=== PATIENT | male | born 1960 | race Caucasian/White ===

== ENCOUNTER 2019-10-23 15:58 | Outpatient (CLI) | payer MEDICARE, SELFPAY ==
--- NOTE | 2019-10-23 | ECG_ITS ---
Measurements Intervals [place] Rate: 72 P: 61 [place]: 190 QRS: 15 QRSD: 78 T: 44 QT: 373 QTc: 411 Interpretive Statements SINUS RHYTHM BASELINE WANDER- V4-V6 NORMAL ECG Electronically Signed On 10-23-2019 16:45:43 FISHING TOOL OPERATOR by Myles Almeida D.O.
[2019-10-23 17:01] LABS: Hematocrit 40.6 % (42.0-52.0); Hemoglobin 13.3 g/dL (14.0-18.0); Mean Corpuscular HGB Conc 32.8 g/dl (32-36); Mean Corpuscular Hemoglobin 30.3 pg (26-34); Mean Corpuscular Volume 92.5 fl (80-100); Mean Platelet Volume 9.7 fl (7.4-10.4); Platelet Count Result 180 k/mm3 (150-375); Red Blood Count 4.39 M/mm3 (4.6-6.20); Red Cell Distribution Width 12.7 % (11.5-14.5); White Blood Count 6.8 K/mm3 (4.5-10.0)
[2019-10-23 17:13] LABS: Alanine Aminotransferase 68 U/L (4-50); Albumin Level 4.7 g/dL (3.5-5.1); Alkaline Phosphatase 54 U/L (38-126); Aspartate Amino Transferase 62 U/L (17-59); Bilirubin,Total 0.4 mg/dL (0.2-1.3); Blood Urea Nitrogen 18 mg/dL (9-20); Calcium 10.4 mg/dL (8.4-10.2); Carbon Dioxide 30 mmol/L (22-30); Chloride 96 mmol/L (98-107); Estimated Glomerular Filt Rate > 60; Glucose 153 mg/dL (75-110); Potassium 4.7 mmol/L (3.4-5.0); Sodium 141 mmol/L (137-145)
== END 2019-10-23 15:59 | disposition home or self-care (01) ==
PROVIDERS: PCP Family Medicine
DX: Z01.818 Encounter for other preprocedural examination (principal); Z01.810 Encounter for preprocedural cardiovascular examination
CPT/HCPCS: 36415; 80053; 85027; 93005

== ENCOUNTER 2019-12-24 14:11 | Outpatient (CLI) | payer MEDICARE, SELFPAY ==
[2019-12-24 15:24] LABS: Prostate Specific Antigen 1.6 ng/mL (< OR = 4.0)
== END 2019-12-24 14:12 | disposition home or self-care (01) ==
LOC: ANHLAB 14:12
PROVIDERS: PCP Family Medicine; Visit Provider Family Medicine
DX: Z12.5 Encounter for screening for malignant neoplasm of prostate (principal)
CPT/HCPCS: 36415; 84153; G0103

== ENCOUNTER 2020-06-23 10:09 | Outpatient (CLI) | payer MEDICARE, SELFPAY ==
[2020-06-23 10:53] LABS: Hematocrit 40.3 % (42.0-52.0); Hemoglobin 13.6 g/dL (14.0-18.0)
[2020-06-23 11:10] LABS: Alanine Aminotransferase 72 U/L (4-50); Albumin Level 4.7 g/dL (3.5-5.1); Alkaline Phosphatase 58 U/L (38-126); Anion Gap 10 mmol/L (8-16); Aspartate Amino Transferase 95 U/L (17-59); Bilirubin,Total 0.5 mg/dL (0.2-1.3); Blood Urea Nitrogen 18 mg/dL (9-20); Calcium 9.5 mg/dL (8.4-10.2); Carbon Dioxide 31 mmol/L (22-30); Chloride 97 mmol/L (98-107); Cholesterol 168 mg/dL (0-200); Estimated Glomerular Filt Rate > 60; Glucose 153 mg/dL (75-110); HDL Direct 27 mg/dL; Potassium 4.4 mmol/L (3.4-5.0); Sodium 138 mmol/L (137-145); Triglycerides 223 mg/dL (<150)
[2020-06-23 11:21] LABS: LDL Cholesterol Direct 110 mg/dL
[2020-06-23 11:25] LABS: Microalbumin Urine Random 28.3 mg/L (0-16.7)
[2020-06-23 11:39] LABS: Prostate Specific Antigen 1.1 ng/mL (< OR = 4.0)
[2020-06-23 11:56] LABS: Creatinine Urine 424.1 mg/dL; MALB Creatinine Ratio 6.7 mg/g (0-30)
[2020-06-28 14:58] LABS: Testosterone Free 43.4 pg/mL (35.0-155.0); Testosterone Total 312 ng/dL (250-1100)
== END 2020-06-23 10:10 | disposition home or self-care (01) ==
PROVIDERS: PCP Family Medicine; Visit Provider Internal Medicine Endocrinology, Diabetes & Metabolism
DX: E11.65 Type 2 diabetes mellitus with hyperglycemia (principal); E23.0 Hypopituitarism; G47.33 Obstructive sleep apnea (adult) (pediatric); E11.9 Type 2 diabetes mellitus without complications; Z12.5 Encounter for screening for malignant neoplasm of prostate
CPT/HCPCS: 36415; 80053; 80061; 82043; 84153; 84402; 84403; 85014; 85018; 87635; C9803; G0103; U0003

== ENCOUNTER 2020-10-21 13:06 | Outpatient (CLI) | payer MEDICARE, SELFPAY ==
[2020-10-21 13:39] LABS: Cholesterol 158 mg/dL (0-200); HDL Direct 36 mg/dL; Triglycerides 319 mg/dL (<150)
[2020-10-21 13:51] LABS: LDL Cholesterol Direct 91 mg/dL
[2020-10-25 14:35] LABS: Testosterone Free 53.9 pg/mL (35.0-155.0); Testosterone Total 333 ng/dL (250-1100)
== END 2020-10-21 13:07 | disposition home or self-care (01) ==
PROVIDERS: PCP Family Medicine; Visit Provider Internal Medicine Endocrinology, Diabetes & Metabolism
DX: E23.0 Hypopituitarism (principal); E11.65 Type 2 diabetes mellitus with hyperglycemia; G47.33 Obstructive sleep apnea (adult) (pediatric); E11.9 Type 2 diabetes mellitus without complications; E78.1 Pure hyperglyceridemia
CPT/HCPCS: 36415; 80061; 82607; 84402; 84403

== ENCOUNTER 2021-05-05 13:54 | Outpatient (CLI) | payer MEDICARE, SELFPAY ==
[2021-05-05 16:16] LABS: Hematocrit 39.2 % (42.0-52.0); Hemoglobin 12.9 g/dL (14.0-18.0)
[2021-05-05 16:24] LABS: Alanine Aminotransferase 81 U/L (4-50); Albumin Level 4.7 g/dL (3.5-5.1); Alkaline Phosphatase 70 U/L (38-126); Anion Gap 14 mmol/L (8-16); Aspartate Amino Transferase 85 U/L (17-59); Bilirubin,Total 0.8 mg/dL (0.2-1.3); Blood Urea Nitrogen 20 mg/dL (9-20); Calcium 10.1 mg/dL (8.4-10.2); Carbon Dioxide 26 mmol/L (22-30); Chloride 99 mmol/L (98-107); Estimated Glomerular Filt Rate > 60; Glucose 258 mg/dL (75-110); HDL Direct 38 mg/dL; Potassium 4.8 mmol/L (3.4-5.0); Sodium 139 mmol/L (137-145)
[2021-05-05 16:34] LABS: LDL Cholesterol Direct 105 mg/dL
[2021-05-05 16:42] LABS: Creatinine Urine 248.4 mg/dL
[2021-05-05 16:45] LABS: MALB Creatinine Ratio 9.1 mg/g (0-30); Microalbumin Urine Random 22.5 mg/L (0-16.7)
[2021-05-05 16:54] LABS: Prostate Specific Antigen 1.4 ng/mL (< OR = 4.0)
[2021-05-09 09:11] LABS: Testosterone Total 288 ng/dL (250-1100)
== END 2021-05-05 13:55 | disposition home or self-care (01) ==
LOC: ANHWCLAB 14:10
PROVIDERS: PCP Family Medicine; Referring Provider Internal Medicine Endocrinology, Diabetes & Metabolism; Visit Provider Internal Medicine Endocrinology, Diabetes & Metabolism
DX: E11.65 Type 2 diabetes mellitus with hyperglycemia (principal); E23.0 Hypopituitarism; Z12.5 Encounter for screening for malignant neoplasm of prostate
CPT/HCPCS: 36415; 80053; 82043; 83718; 83721; 84153; 84402; 84403; 85014; 85018; G0103

== ENCOUNTER 2021-06-09 13:21 | Outpatient (CLI) | payer MEDICARE, SELFPAY ==
--- NOTE | ~2021-06-09 | US_ITS ---
EXAMINATION: US thyroid DATE: 06/09/2021 13:45 INDICATION: Nontoxic goiter. TECHNIQUE: Multiple ultrasound images of the thyroid were obtained. COMPARISON: Ultrasound 04/30/2017 FINDINGS: The right thyroid lobe measures 5.9 x 4.2 x 4.0 cm. The left thyroid lobe measures 4.3 x 1.1 x 1.3 c m. In the right thyroid lobe, there is a 4.9 cm mixed cystic and solid, hypoechoic, kxsnu-bmya-daxl nodule with ill-defined margin without echogenic foci (TI-RADS TR3). In the left thyroid lobe, there is a 4 mm nodule. IMPRESSION: 1. 4.9 cm right thyroid nodule with increase in size from 3.1 cm on 06/06/2017 when biopsy was benign. Repeat ultrasound-guided fine-needle aspiration is recommended. Reviewed, dictated and finalized at location A. IMPRESSION: 1. 4.9 cm right thyroid nodule with increase in size from 3.1 cm on 06/06/2017 wh en biopsy was benign. Repeat ultrasound-guided fine-needle aspiration is recomm ended.
== END 2021-06-09 13:22 | disposition home or self-care (01) ==
LOC: ANHIMG 13:22
PROVIDERS: PCP Family Medicine; Visit Provider Internal Medicine Endocrinology, Diabetes & Metabolism
DX: E04.9 Nontoxic goiter, unspecified (principal)
CPT/HCPCS: 76536

== ENCOUNTER 2021-06-21 13:11 | Outpatient (CLI) | payer MEDICARE, SELFPAY ==
--- NOTE | ~2021-06-21 | US_ITS ---
EXAMINATION: US FNA w image guidance DATE: 06/21/2021 13:56 INDICATION: Enlarging right thyroid nodule TECHNIQUE: A time-out was performed to verify the patient's name, date of , and procedure to be performed . The procedure and its benefits and risks were discussed with the patient. Risks specifically discus sed included bleeding and infection. The patient understood the risks and agreed to proceed. The neck was prepped and draped in the usual sterile manner. 3 mL 1% lidocaine was used for local anesthesia . 6 passes were made with a 25G needle into the lesion. Appropriate needle location was documented with continuous sonographic guidance. The specimens were passed to the medical technologist in the room. A sterile bandage was applied. There were no immediate complications. FINDINGS: Grayscale ultrasound images demonstrate biopsy needles advanced into a 5.0 cm mixed solid and cystic right thyroid nodule. There are echogenic foci within the nodule, many of which on real-time imaging demonstrated prominent posterior comet tail artifact consistent with inspissated colloid. IMPRESSION: 1. Successful ultrasound-guided fine needle aspiration of the enlarging 5.0 cm mixed solid and cysti c right thyroid nodule. Reviewed, dictated and finalized at location A. IMPRESSION: 1. Successful ultrasound-guided fine needle aspiration of the enlarging 5.0 cm mixed solid and cystic right thyroid nodule.
== END 2021-06-21 13:12 | disposition home or self-care (01) ==
LOC: ANHIMG 13:16
PROVIDERS: PCP Family Medicine; Visit Provider Internal Medicine Endocrinology, Diabetes & Metabolism
DX: E04.1 Nontoxic single thyroid nodule (principal)
CPT/HCPCS: 10005; 88173; 88305

== ENCOUNTER 2021-10-13 14:11 | Outpatient (CLI) | payer MEDICARE, SELFPAY ==
[2021-10-13 14:38] LABS: Hematocrit 38.9 % (42.0-52.0); Hemoglobin 13.1 g/dL (14.0-18.0)
[2021-10-17 16:02] LABS: Testosterone Free 84.4 pg/mL (46.0-224.0); Testosterone Total 539 ng/dL (250-1100)
== END 2021-10-13 14:12 | disposition home or self-care (01) ==
PROVIDERS: PCP Family Medicine; Visit Provider Internal Medicine Endocrinology, Diabetes & Metabolism
DX: E34.9 Endocrine disorder, unspecified (principal)
CPT/HCPCS: 36415; 84402; 84403; 85014; 85018

== ENCOUNTER 2021-12-13 14:44 | Outpatient (CLI) | payer MEDICARE, SELFPAY ==
--- NOTE | ~2021-12-13 | MR_ITS ---
EXAMINATION: MR shoulder LT wo con DATE: 12/13/2021 15:50 INDICATION: Left shoulder pain TECHNIQUE: Magnetic resonance imaging (MRI) of the left shoulder was performed without intravenous co ntrast. Sequences included axial PD-weighted FS FSE, coronal oblique PD-weighted FS FSE, coronal obli que T2-weighted FS FSE, sagittal PD-weighted FS FSE, and sagittal T1-weighted SE. COMPARISON: 05/29/2012 FINDINGS: Coracoacromial arch: The acromion undersurface is curved in morphology (type II). Again seen is thickening of the acromial side of the coracoacromial ligament. Chronic widening of the acromioclavicular joint which measures approximately 9 mm in width with small heterotopic ossicle along the dorsal capsule. Small marginal o steophytes. Coracoclavicular ligament remains intact. Rotator cuff: Moderate supraspinatus and infraspinatus tendinopathy. New large full-thickness tear involving the th e majority of the supraspinatus and infraspinatus tendons. A small portion of the bursal side of the anteriormost supraspinatus tendon and of the posterior most infraspinatus tendon remain intact. The s upraspinatus tear margin is retracted approximately 5 cm medially from the footplate lying cephalad t o the rim of the glenoid. Teres minor tendon is normal. Mild subscapularis tendinopathy without discr ete tear. There is moderate atrophy of the supraspinatus muscle belly with concave contour at the sup raspinatus fossa and of the infraspinatus muscle belly where there is more prominent fatty atrophy. Biceps tendon, glenoid labrum and glenohumeral cartilage: Mild tendinopathy of the intra-articular long head biceps tendon without discrete tear. Normal ivy superior sublingual foramen. There is globular thickening and amorphous signal of the anteroinferior glenoid labrum consistent with degenerative tearing decreasing in severity at the inferior glenoid tr ansitioning to a more well-defined linear tear at the base of the posterior inferior posterior glenoi d labrum. There is additional degenerative tearing of the posterior superior labrum. The superior gle noid labrum appears relatively preserved. There is some partial-thickness chondral fissuring at the i nferior glenoid. Partial-thickness cartilage loss with smooth chondral surface along the inferomedial aspect of the humeral head and the cephalad third of the glenoid. Fluid: Small glenohumeral joint effusion extending through the full-thickness rotator cuff tear defect into the subacromial/subdeltoid bursa. Physiologic amount fluid along the long head biceps tendon sheath. No loose osteochondral bodies. Bones: Normal marrow signal with no edema, fracture or pathologic marrow replacing process. IMPRESSION: 1. Large full-thickness tear involving the majority supraspinatus and infraspinatus tendons with mode rate associated muscular atrophy. 2. Mild glenohumeral osteoarthritis with interval progression of now extensive labral tear/degenerati on. 3. Chronic acromioclavicular joint separation with persistent widening of the joint space. 4. Mild tendinopathy without discrete tear of the intra-articular long head biceps tendon. Reviewed, dictated and finalized at location A. RE PHOTOGRAPHER IMPRESSION: 1. Large full-thickness tear involving the majority supraspinatus and infraspin atus tendons with moderate associated muscular atrophy. 2. Mild glenohumeral osteoarthritis with interval progression of now extensive labral tear/degeneration. 3. Chronic acromioclavicular joint separation with persistent widening of the j oint space. 4. Mild tendinopathy without discrete tear of the intra-articular long head bic eps tendon.
== END 2021-12-13 14:45 | disposition home or self-care (01) ==
LOC: ANHIMG 14:50
PROVIDERS: PCP Family Medicine
DX: M19.012 Primary osteoarthritis, left shoulder (principal)
CPT/HCPCS: 73221

== ENCOUNTER 2022-04-05 12:34 | Emergency (ER) | payer MEDICARE, SELFPAY ==
[2022-04-05] VITALS (20 sets, daily range): BP systolic 98–139; BP diastolic 60–93; PULSE 98–99; RESP 16–18; TEMP 36.8; O2SAT 92–100
--- NOTE | ~2022-04-05 | CT_ITS ---
EXAMINATION: CT brain wo con DATE: 04/05/2022 13:26 INDICATION: Altered mental status. Confusion. TECHNIQUE: Computed tomography (CT) of the head was performed without intravenous contrast. The dose- length product was 681.00 mGy-cm. Automated exposure control and iterative reconstruction technique w ere employed. COMPARISON: None FINDINGS: Brain parenchymal volume is normal for age. No acute intracranial hemorrhage, infarction, m ass or mass effect. No ventriculomegaly or midline shift. Basilar cisterns are patent. Midline sagitt al images are unremarkable. Paranasal sinuses and mastoids are pneumatized. There is mucosal thickeni ng of the frontal and ethmoid sinuses. IMPRESSION: 1. No acute intracranial abnormality. 2: Mild sinus disease. Reviewed, dictated and finalized at location A.
[2022-04-05] MEDS: LACTATED RINGERS 1,000 ML 999 ML IV CONT (12:34)
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
[2022-04-05 13:03] LABS: Basophils Absolute Auto 0.05 K/mm3 (0.00-0.10); Basophils Percent Auto 0.7 % (0.0-1.0); Eosinophils Absolute Auto 0.16 K/mm3 (0.02-0.50); Eosinophils Percent Auto 2.4 % (1.0-6.0); Hematocrit 35.2 % (40.0-54.0); Hemoglobin 11.3 g/dL (14.0-18.0); Immature Granulocyte Absolute 0.03 K/mm3 (0.00-0.00); Immature Granulocyte Percent A 0.4 % (0.0-0.0); Lymphocytes Absolute Auto 2.34 K/mm3 (1.10-4.50); Lymphocytes Percent Auto 34.9 % (18.0-42.0); Mean Corpuscular HGB Conc 32.1 g/dL (32.0-36.0); Mean Corpuscular Hemoglobin 28.8 pg (27.0-31.0); Mean Corpuscular Volume 89.6 fL (78.0-102.0); Mean Platelet Volume 8.5 fl (8.7-11.0); Monocytes Absolute Auto 0.47 K/mm3 (0.10-0.90); Neutrophils Absolute Auto 3.7 K/mm3 (1.7-7.2); Neutrophils Percent Auto 54.6 % (50.0-70.0); Platelet Count Result 159 K/mm3 (150-420); Red Blood Count 3.93 M/mm3 (4.70-6.10); White Blood Count 6.7 K/mm3 (4.8-10.8)
[2022-04-05] MEDS: LORazepam INJ (*CRX) 2 MG/ML VIAL IV PUSH (13:05)
[2022-04-05] MEDS: THIAMINE HCL 200 MG/2 ML VIAL 100 MG IV PUSH (13:05)
[2022-04-05 13:13] LABS: Prothrombin Time 10.9 Seconds (9.50-12.10)
--- NOTE | 2022-04-05 13:20 | PC.NURSE ---
PT IS IN CT AT THIS TIME.
[2022-04-05 13:21] LABS: Alanine Aminotransferase 58 U/L (16-63); Albumin Level 3.5 g/dL (3.4-5.0); Alkaline Phosphatase 82 U/L (46-116); Anion Gap 9 mmol/L (8-16); Aspartate Amino Transferase 49 U/L (15-37); Bilirubin,Total 0.2 mg/dL (0.00-1.00); Blood Urea Nitrogen 16 mg/dL (7-18); Calcium 8.9 mg/dL (8.5-10.1); Carbon Dioxide 28 mmol/L (21-32); Chloride 104 mmol/L (98-108); Estimated CRCL calculation 83 ml/min; Estimated Glomerular Filt Rate > 60; Glucose 203 mg/dL (70-99); Lipase 163 U/L (73-393); Magnesium 2.1 mg/dL (1.8-2.4); Osmolality Calculated 299 mOsm/kg (285-295); Phosphorus 3.6 mg/dL (2.6-4.7); Sodium 141 mmol/L (136-145); Total Protein 7.5 g/dL (6.4-8.2); Troponin I 13.1 ng/L (0.00-60.4)
[2022-04-05 13:22] LABS: Acetaminophen < 2 ug/mL (10-30)
[2022-04-05 13:23] LABS: Ethanol 392 mg/dL (0-6)
--- NOTE | 2022-04-05 13:35 | PC.NURSE ---
PT HAS RETURNED FROM CT, PROVIDED URINE SPECIMEN. PT CONTINUES TO YELL IN EXAM ROOM. ETOH OF 392 PER LAB. WILL CONTINUE TO MONITOR.
[2022-04-05 13:46] LABS: Amphetamine Screen Urine Negative (Negative); Barbiturate Screen Urine Negative (Negative); Benzodiazepines Screen Urine Positive (Negative); Cannabinoid Screen Urine Positive (Negative); Cocaine Screen Urine Negative (Negative); Methadone Screen Urine Negative (Negative); Opiate Screen Urine Positive (Negative); Phencyclidine Screen Urine Negative (Negative)
--- NOTE | 2022-04-05 14:01 | PC.NURSE ---
DAUGHTER JACKIE ARRIVED, REPORTED SHE IS WILLING TO TRANSPORT PT HOME WHEN HE IS READY. PROVIDED # [phone]. PT IS CURRENTLY RESTING ON STRETCHER IN EXAM ROOM WITHOUT DISTRESS. WILL CONTINUE TO MONITOR.
--- NOTE | 2022-04-05 14:46 | PC.NURSE ---
PT IS RESTING ON STRETCHER IN EXAM ROOM AT THIS TIME. NAD NOTED. VSS PER MONITOR. WILL CONTINUE TO MONITOR.
--- NOTE | 2022-04-05 15:30 | PC.NURSE ---
1000ML URINE OUTPUT AT THIS TIME.PT CONTINUES TO HAVE GARBLED SPEECH, ASKING THIS RN IF SHE WOULD LIKE TO HAVE SEX. PT RETURNS TO LYING ON STRETCHER AT THIS TIME. WILL CONTINUE TO MONITOR.
--- NOTE | 2022-04-05 16:00 | PC.NURSE ---
PT IS EATING SANDWICH AT THIS TIME, REPORTS HE WANTS TO LEAVE. PT HAS BEEN REDIRECTED MULTIPLE TIMES AND REPOSITIONED, RETURNED TO [facility] PT IS MORE COHERENT, REPORTS HE LIVES IN [place], HOWEVER DOES NOT KNOW HOW HE GOT HERE. PT IS ABLE TO PROVIDE NUMBERS FOR DAUGHTER AT THIS TIME. PT IS UNSTEADY ON HIS FEET. WILL CONTINUE TO MONITOR.
[2022-04-05] MEDS: diazePAM (*CRX) 5 MG TABLET PO (16:11)
--- NOTE | 2022-04-05 16:15 | PC.NURSE ---
PT HAS EATEN SANDWICH, LYING ON STRETCHER AT THIS TIME, YELLING ABOUT HIS FAMILY. WILL CONTINUE TO MONITOR.
--- NOTE | 2022-04-05 17:05 | PC.NURSE ---
SPOKE WITH DAUGHTER WHO IS COMING TO TRANSPORT PT. PT DEMANDING TO LEAVE OR STATES HE IS WALKING OUT. PT IS ABLE TO AMBULATE, DRESS SELF. PT IS A & O X4.
--- NOTE | 2022-04-05 17:17 | PC.NURSE ---
PT IS ABLE TO USE URINAL TO VOID WITHOUT DISTRESS. 600ML OUTPUT. PT HAS SLIPPER SOCK ON. PT IS AWAITING ARRIVAL OF DAUGHTER
== END 2022-04-05 17:40 | disposition home or self-care (01) ==
PROVIDERS: Emergency Provider Internal Medicine Critical Care Medicine
DX: F10.129 Alcohol abuse with intoxication, unspecified (principal); E11.65 Type 2 diabetes mellitus with hyperglycemia; F19.10 Other psychoactive substance abuse, uncomplicated; D64.9 Anemia, unspecified; I10 Essential (primary) hypertension; K21.9 Gastro-esophageal reflux disease without esophagitis; F41.9 Anxiety disorder, unspecified; M79.671 Pain in right foot; K70.10 Alcoholic hepatitis without ascites; G47.00 Insomnia, unspecified
CPT/HCPCS: 36415; 70450; 80053; 80307; 83690; 83735; 84100; 84484; 85025; 85610; 96361; 96374; 96375; 99284; A9270; J2060; J3411; J7120

== ENCOUNTER 2022-07-15 09:11 | Outpatient (CLI) | payer MEDICARE, SELFPAY ==
[2022-07-15 10:08] LABS: Cholesterol 118 mg/dL (0-200); HDL Direct 30 mg/dL; Triglycerides 234 mg/dL (<150)
[2022-07-15 10:10] LABS: Creatinine Urine 100.8 mg/dL
[2022-07-15 10:15] LABS: MALB Creatinine Ratio < 6.0 mg/g (0-30); Microalbumin Urine Random < 6.0 mg/L (0-16.7)
[2022-07-15 10:19] LABS: LDL Cholesterol Direct 47 mg/dL
[2022-07-15 23:23] LABS: Prostate Specific Antigen 1.5 ng/mL (< OR = 4.0)
[2022-07-21 08:24] LABS: Testosterone Free 64.3 pg/mL (46.0-224.0); Testosterone Total 337 ng/dL (250-1100)
== END 2022-07-15 09:12 | disposition home or self-care (01) ==
LOC: ANHLAB 09:12
PROVIDERS: PCP Family Medicine; Visit Provider Internal Medicine Endocrinology, Diabetes & Metabolism
DX: E11.9 Type 2 diabetes mellitus without complications (principal); E23.0 Hypopituitarism; G47.33 Obstructive sleep apnea (adult) (pediatric); Z68.29 Body mass index [BMI] 29.0-29.9, adult; Z12.5 Encounter for screening for malignant neoplasm of prostate
CPT/HCPCS: 36415; 80061; 82043; 84153; 84402; 84403; G0103

== ENCOUNTER 2022-09-20 15:28 | Outpatient (CLI) | payer MEDICARE, SELFPAY ==
[2022-09-20 15:44] LABS: Hematocrit 37.5 % (42.0-52.0); Hemoglobin 11.9 g/dL (14.0-18.0); Mean Corpuscular HGB Conc 31.7 g/dl (32-36); Mean Corpuscular Hemoglobin 27.4 pg (26-34); Mean Corpuscular Volume 86.4 fl (80-100); Mean Platelet Volume 8.9 fl (7.4-10.4); Platelet Count Result 156 k/mm3 (150-375); Red Blood Count 4.34 M/mm3 (4.6-6.20); Red Cell Distribution Width 14.2 % (11.5-14.5); White Blood Count 6.1 K/mm3 (4.5-10.0)
[2022-09-20 15:58] LABS: Alanine Aminotransferase 52 U/L (6-50); Albumin Level 4.9 g/dL (3.5-5.1); Alkaline Phosphatase 71 U/L (38-126); Anion Gap 14 mmol/L (8-16); Aspartate Amino Transferase 49 U/L (17-59); Bilirubin,Total 0.5 mg/dL (0.2-1.3); Blood Urea Nitrogen 22 mg/dL (9-20); Calcium 9.5 mg/dL (8.4-10.2); Carbon Dioxide 27 mmol/L (22-30); Chloride 97 mmol/L (98-107); Estimated Glomerular Filt Rate > 60; Glucose 163 mg/dL (65-110); Potassium 4.4 mmol/L (3.4-5.0); Sodium 138 mmol/L (137-145)
[2022-09-20 16:00] LABS: Hemoglobin A1C 6.6 % (<5.7)
--- NOTE | 2022-09-20 16:27 | ECG_ITS ---
Measurements Intervals [place] Rate: 76 P: 57 [place]: 203 QRS: 6 QRSD: 79 T: 30 QT: 363 QTc: 409 Interpretive Statements SINUS RHYTHM BORDERLINE AV CONDUCTION DELAY BORDERLINE ECG COMPARED TO ECG 10/23/2019 16:23:03 NO SIGNIFICANT CHANGES Electronically Signed On 09-20-2022 16:57:49 VP ANALYSIS by Myles Almeida D.O.
== END 2022-09-20 15:29 | disposition home or self-care (01) ==
PROVIDERS: PCP Family Medicine; Visit Provider Family Medicine
DX: R74.01 Elevation of levels of liver transaminase levels (principal); I10 Essential (primary) hypertension; E11.9 Type 2 diabetes mellitus without complications; I45.9 Conduction disorder, unspecified
CPT/HCPCS: 36415; 80048; 80076; 83036; 85027; 93005

== ENCOUNTER 2022-11-29 13:35 | Outpatient (RCR) | payer MEDICARE, SELFPAY ==
--- NOTE | 2022-11-29 15:33 | PTOPEVAL1 ---
Assessment and note entered by Klever Tee Evaluation Information Assessment Status Evaluation Diagnosis left reverse shoulder replacement Onset 09/26/22 Subjective Information Pt. reports he underwent surgery on 09/26/22. He reports that he was in a sling for about 6 weeks after surgery. He states that he has been doing wrist and elbow movements at home, but no specific shoulder exercise. He states that he did have the biceps repaired but appeared to have had the biceps detach in the recent days. He reports that he does have pain with moving the left arm. He is right hand dominant. He reports that he is disabled. He reports that he was able to do all IADL's wtihout complication prior to surgery. He reports that his goal is normal left arm use. Reported Pain Level Pain Score 4: Self Report Assessment PT Clinical Summary Pt. is a 62 year old male who enters the clinic 9 weeks post left reverse TSA. He presents with decreased strength, decreased ROM, and pain at the left shoulder on this date. Continued treatment is indicated in order to improve these areas to allow for improved ability to complete all IADL's. Plan of Care PT Services Indicated Yes Treatment Frequency and 3x/week x 12 visits Duration These treatments will address the objective and functional deficits as defined above. The patient will be advanced safely and appropriately in order for the patient to progress towards his/her prior level of function. Additional exercises will be introduced and as well as a comprehensive home exercise program upon discharge, if needed, ?to ensure carryover of functional gains achieved in the clinic. This treatment plan has been reviewed and agreement upon by the patient.
--- NOTE | 2022-12-21 14:53 | PTOPEVAL1 ---
Assessment and note entered by Klever Tee Evaluation Information Assessment Status Progress Diagnosis left reverse shoulder replacement Onset 09/26/22 Subjective Information Pt. reports that the left arm is moving much better. He notices he can now reach overhead with the left arm. He has noticed that he can reach objects in the lower part of his cabinets at home. He still has trouble with reaching behind his back or with reaching much higher than described head height. Reported Pain Level Pain Score 4: Self Report Assessment PT Clinical Summary Pt. has attended a total of 10 treatment sessions from 11/29/22 to 12/21/22. He has demonstrated excellent progress in regards to strength and mobility voodoo. He continues to progress towards goals related to functional overhead mobility. He continues to present with faulty scapulothoracic mechanics indicating remaining weakness that can limited functional reaching. Recommend continued skilled PT continuing to progress strengthening activities. Plan of Care Interventions Electrical Stimulation,Hot Pack/Cold Pack,Manual Therapy,Therapeutic Activities,Therapeutic Exercise PT Services Indicated Yes Treatment Frequency and 2x/week x 4 visits Duration These treatments will address the objective and functional deficits as defined above. The patient will be advanced safely and appropriately in order for the patient to progress towards his/her prior level of function. Additional exercises will be introduced and as well as a comprehensive home exercise program upon discharge, if needed, ?to ensure carryover of functional gains achieved in the clinic. This treatment plan has been reviewed and agreement upon by the patient.
--- NOTE | 2023-01-04 15:08 | PTOPEVAL1 ---
Assessment and note entered by Klever Tee Evaluation Information Assessment Status Progress Diagnosis left reverse shoulder replacement Onset 09/26/22 Subjective Information Pt. reports that he still is weak overhead. He states that he just got to the point of being able to strengthen the arm. He reports most complication with lifting object with signficant weight overhead as well as continued pain with movement. He states that he would like to be able to reach overhead Reported Pain Level Pain Score 3: Self Report Assessment PT Clinical Summary Pt. continues to demonstrate progress in regards to strength and mobility. He has recently been advanced to strengthening activities. He continues to presents with weakness and stiffness at the left shoulder. Recommend continued skilled PT at a decreased frequency to assist with achieving improved strength and mobility to optimize function. Plan of Care Interventions Hot Pack/Cold Pack,Manual Therapy,Neuro Re- education,Therapeutic Activities,Therapeutic Exercise PT Services Indicated Yes Treatment Frequency and 1x/week x 4 visits Duration These treatments will address the objective and functional deficits as defined above. The patient will be advanced safely and appropriately in order for the patient to progress towards his/her prior level of function. Additional exercises will be introduced and as well as a comprehensive home exercise program upon discharge, if needed, ?to ensure carryover of functional gains achieved in the clinic. This treatment plan has been reviewed and agreement upon by the patient.
--- NOTE | 2023-02-14 15:28 | PTOPDC ---
Assessment and note entered by JT File, PT Evaluation Information Assessment Status Discharge Diagnosis left reverse shoulder replacement Onset 09/26/22 Subjective Information patient reports he feels Great this date. he reports he is ready to be done with therapy. he reports his mobility is better than it has been in years, and he is not limited in any home activities. Reported Pain Level Pain Score 0: Self Report Assessment PT Clinical Summary mr. castillo presents to skilled PT services for his 18th skilled therapy visit. he presents today with improved rom and strength of the L shoulder. he has met 60% of goals for skilled PT. he is ready to DC therapy and continue with HEP exercises on his own at home. Plan of Care PT Services Indicated Yes
== END 2023-02-14 16:28 | disposition home or self-care (01) ==
LOC: CHSPT 13:35
PROVIDERS: Visit Provider Orthopaedic Surgery
DX: Z47.1 Aftercare following joint replacement surgery (principal); Z96.612 Presence of left artificial shoulder joint
CPT/HCPCS: 97014; 97110; 97161; 97530; G0283

== ENCOUNTER 2023-06-27 09:58 | Outpatient (CLI) | payer MEDICARE, SELFPAY ==
[2023-06-27 10:32] LABS: Hematocrit 39.6 % (42.0-52.0); Hemoglobin 11.5 g/dL (14.0-18.0)
[2023-06-27 10:44] LABS: Alanine Aminotransferase 70 U/L (6-50); Albumin Level 5.2 g/dL (3.5-5.1); Alkaline Phosphatase 57 U/L (38-126); Anion Gap 15 mmol/L (8-16); Aspartate Amino Transferase 72 U/L (17-59); Bilirubin,Total 1.2 mg/dL (0.2-1.3); Blood Urea Nitrogen 19 mg/dL (9-20); Calcium 10.1 mg/dL (8.4-10.2); Carbon Dioxide 28 mmol/L (22-30); Chloride 94 mmol/L (98-107); Cholesterol 190 mg/dL (0-200); Estimated Glomerular Filt Rate > 60; Glucose 168 mg/dL (65-110); HDL Direct 40 mg/dL; Potassium 4.1 mmol/L (3.4-5.0); Sodium 137 mmol/L (137-145); Triglycerides 411 mg/dL (<150)
[2023-06-27 10:55] LABS: LDL Cholesterol Direct 102 mg/dL
[2023-06-27 11:13] LABS: Prostate Specific Antigen 1.8 ng/mL (< OR = 4.0)
[2023-06-27 11:17] LABS: Free T4 Free Thyroxine 1.46 ng/mL (0.78-2.19)
[2023-06-27 11:42] LABS: MALB Creatinine Ratio < 6.3 mg/g (0-30); Microalbumin Urine Random < 6.0 mg/L (0-16.7)
[2023-07-06 10:36] LABS: Testosterone Total 629 ng/dL (250-1100)
== END 2023-06-27 09:59 | disposition home or self-care (01) ==
PROVIDERS: PCP Family Medicine; Visit Provider Internal Medicine Endocrinology, Diabetes & Metabolism
DX: E04.1 Nontoxic single thyroid nodule (principal); E11.9 Type 2 diabetes mellitus without complications; E23.0 Hypopituitarism; E78.1 Pure hyperglyceridemia; R79.89 Other specified abnormal findings of blood chemistry; Z12.5 Encounter for screening for malignant neoplasm of prostate; R74.01 Elevation of levels of liver transaminase levels
CPT/HCPCS: 36415; 80053; 80061; 82043; 82607; 84153; 84402; 84403; 84439; 84443; 85014; 85018; G0103

== ENCOUNTER 2023-09-04 14:40 | Outpatient (CLI) | payer MEDICARE, SELFPAY ==
--- NOTE | ~2023-09-04 | US_ITS ---
EXAMINATION: US thyroid DATE: 09/04/2023 15:35 INDICATION: Nontoxic single thyroid nodule. TECHNIQUE: Multiple ultrasound images of the thyroid were obtained. COMPARISON: Ultrasound 06/09/2021, 06/21/2021, 04/30/2017, 06/06/17 FINDINGS: The right thyroid lobe measures 6.5 x 4.6 x 5.5 cm. The left thyroid lobe measures 3.8 x 1.3 x 0.9 c m. In the right thyroid lobe, there is a 5.3 cm mixed cystic and solid, hypoechoic, wider than tall nodule with ill-defined margin and punctate echogenic foci (TI-RADS TR4), stable from 06/21/21 when bi opsy was benign. IMPRESSION: 1. Stable benign right thyroid nodule. Reviewed, dictated and finalized at location E.
== END 2023-09-04 14:41 | disposition home or self-care (01) ==
PROVIDERS: PCP Family Medicine; Visit Provider Internal Medicine Endocrinology, Diabetes & Metabolism
DX: E04.1 Nontoxic single thyroid nodule (principal)
CPT/HCPCS: 76536

== ENCOUNTER 2023-09-08 11:36 | Outpatient (CLI) | payer MEDICARE, SELFPAY ==
--- NOTE | ~2023-09-08 | XR_ITS ---
XR hand RT min 3V 09/08/2023 12:00 Indication: Right hand pain Procedure: 4 views right hand Comparison: No prior studies for comparison. Findings: Mild polyarticular osteoarthritis. No fracture, subluxation or dislocation. No significant soft tissue abnormality. No foreign bodies. Impression: 1: Mild polyarticular osteoarthritis. Reviewed, dictated and finalized at location A. Impression: 1: Mild polyarticular osteoarthritis.
== END 2023-09-08 11:37 | disposition home or self-care (01) ==
PROVIDERS: PCP Family Medicine; Visit Provider Nurse Practitioner Family
DX: S69.91XA Unspecified injury of right wrist, hand and finger(s), initial encounter (principal); X58.XXXA Exposure to other specified factors, initial encounter; M19.041 Primary osteoarthritis, right hand
CPT/HCPCS: 73130

== ENCOUNTER 2023-11-08 11:43 | Outpatient (CLI) | payer MEDICARE, SELFPAY ==
[2023-11-08 12:42] LABS: Alanine Aminotransferase 45 U/L (6-50); Alkaline Phosphatase 45 U/L (38-126); Anion Gap 12 mmol/L (8-16); Aspartate Amino Transferase 70 U/L (17-59); Bilirubin,Total 1.2 mg/dL (0.2-1.3); Blood Urea Nitrogen 17 mg/dL (9-20); Calcium 10.2 mg/dL (8.4-10.2); Carbon Dioxide 26 mmol/L (22-30); Chloride 99 mmol/L (98-107); Cholesterol 132 mg/dL (0-200); Estimated Glomerular Filt Rate > 60; Glucose 168 mg/dL (65-110); HDL Direct 32 mg/dL; Potassium 4.4 mmol/L (3.4-5.0); Sodium 137 mmol/L (137-145); Triglycerides 216 mg/dL (<150)
[2023-11-08 12:53] LABS: LDL Cholesterol Direct 70 mg/dL
== END 2023-11-08 11:44 | disposition home or self-care (01) ==
LOC: ANHLAB 11:45
PROVIDERS: PCP Family Medicine; Visit Provider Internal Medicine Endocrinology, Diabetes & Metabolism
DX: R74.01 Elevation of levels of liver transaminase levels (principal); E11.9 Type 2 diabetes mellitus without complications
CPT/HCPCS: 36415; 80053; 80061

== ENCOUNTER 2025-01-06 14:00 | Outpatient (CLI) | payer MEDICARE, SELFPAY ==
[2025-01-06 16:00] LABS: Anion Gap 15 mmol/L (4-12); Blood Urea Nitrogen 17 mg/dL (9-20); Calcium 9.7 mg/dL (8.4-10.2); Carbon Dioxide 29 mmol/L (22-30); Chloride 94 mmol/L (98-107); Estimated Glomerular Filt Rate > 60; Glucose 120 mg/dL (65-110); Sodium 138 mmol/L (137-145)
[2025-01-06 16:20] LABS: Free T4 Free Thyroxine 1.09 ng/dL (0.78-2.19)
[2025-01-06 17:21] LABS: MALB Creatinine Ratio < 8.7 mg/g (0-30); Microalbumin Urine Random < 6.0 mg/L (0-16.7)
[2025-01-10 00:58] LABS: Testosterone Total 212 ng/dL (250-1100)
== END 2025-01-06 14:01 | disposition home or self-care (01) ==
PROVIDERS: PCP Family Medicine; Visit Provider Internal Medicine Endocrinology, Diabetes & Metabolism
DX: E78.5 Hyperlipidemia, unspecified (principal); E11.9 Type 2 diabetes mellitus without complications; E78.1 Pure hyperglyceridemia; E23.0 Hypopituitarism; R79.89 Other specified abnormal findings of blood chemistry; E34.9 Endocrine disorder, unspecified; E04.1 Nontoxic single thyroid nodule; G62.9 Polyneuropathy, unspecified; R74.01 Elevation of levels of liver transaminase levels
CPT/HCPCS: 36415; 80048; 82043; 84402; 84403; 84439; 84443

== ENCOUNTER 2025-02-11 09:15 | Outpatient (CLI) | payer MEDICARE, SELFPAY ==
--- NOTE | ~2025-02-11 | US_ITS ---
EXAMINATION: US thyroid DATE: 02/11/2025 10:03 INDICATION: Nontoxic thyroid nodule TECHNIQUE: Multiple ultrasound images of the thyroid were obtained. COMPARISON: 09/04/2023. FINDINGS: The right thyroid lobe measures 8.0 x 4.2 x 5.7 cm. Within the upper pole of the right lobe of the thyroid gland is a 5.9 x 3.4 x 4.4 mm nodule (post FNA in 2020 yielding benign results) The left thyroid lobe measures 3.6 x 1.2 x 1.1 cm. The isthmus measures 0.3cm in anterior to posterior dimension. There is otherwise normal echotexture and echogenicity throughout the remainder of the thyroid gland. No additional discrete nodules identified. Normal vascular flow is present. IMPRESSION: Stable ultrasound examination of the thyroid gland, as detailed above. Single thyroid nodule post FNA in 2020, yielding benign results. Reviewed, dictated and finalized at location A.
--- OUTSIDE RECORDS SUMMARY | 2025-02-11 09:59 | XMS_ITS | Clinical Summary ---
Author Organization [facility] Address [address] 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
--- OUTSIDE RECORDS SUMMARY | 2025-02-11 09:59 | XMS_ITS | Encounter Summary ---
Author Organization [facility] Address 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
--- OUTSIDE RECORDS SUMMARY | 2025-02-11 09:59 | XMS_ITS | Clinical Summary ---
Author Organization [facility] Address [address], [facility] [address] [place] [address] Phone Care Team Providers Care Under Trimmer Name Role Phone Malachi Vaughn DO Unavailable [phone] Jeff Bowles MD Primary Care Provider [phone] Medications polyethylene glycol (MIRALAX) Powder Mix the entire bottle with 64 oz of a clear liquid. Use as directed by the office for colonoscopy prep. 255 g 0 5 Active lisinopril (PRINIVIL, ZESTRIL) 10 MG Tablet Take 10 mg by mouth daily. Active amLODIPine (NORVASC) 10 MG Tablet Take 10 mg by mouth daily. Active losartan (COZAAR) 100 MG Tablet Take 100 mg by mouth daily. Active SitaGLIPtin-Met FORMIN HCl (JANUMET PO) Take by mouth daily. Active glimepiride (AMARYL) 2 MG Tablet Take 2 mg by mouth every morning. Active ALPRAZolam (XANAX) 1 MG Tablet Take 1 mg by mouth 3 times daily as needed. Active HYDROcodone-camilla taminophen (NORCO) 10-325 MG Tablet Take 1 Tab by mouth 4 times daily. Active omeprazole (PriLOSEC) 40 MG CAPSULE DELAYED RELEASE Take 1 Capsule by mouth every 12 hours. 180 Capsule 1 1 Active Social History Tobacco Use Types Packs/Day Years Used Date Smoking Tobacco: Never Assessed Sex and Gender Information Value Date Recorded Sex Assigned at Not on file Legal Sex Male 5:39 PM CDT Gender Identity Not on file Sexual Orientation Not on file Plan of Treatment Health Maintenance Due Date Last Done Comments Hepatitis C Virus (HCV) Screening 1962 TdaP Immunization 1962 Cologuard 2012 Immunochemical Fecal Occult Blood 2012 Pneumococcal Immunization (5 0+ years) (1 of 1 - PCV) 2012 Zoster Immunization (1 of 2) 2012 PSA Discussion 2017 Influenza Immunization (#1) 2024 SARS-COV-2 Immunization ( - season) 2024 Colonoscopy 12/24/2025 12/24/2015 Colorectal Cancer Screening 12/24/2025 Respiratory Syncytial Virus (RSV) Immunization (Adult) (1 - 1-dose 75+ series) 2037 12/24/2015 Hepatitis B Immunization Aged Out No longer eligible based on patient's age to complete this topic Meningococcal Immunization (ACWY) Aged Out No longer eligible based on patient's age to complete this topic Pneumococcal Immunization Combined Aged Out No longer eligible based on patient's age to complete this topic Rotavirus Immunization Aged Out No lo nger eligible based on patient's age to complete this topic Procedures Procedure Name Priority Date/Time Associated Diagnosis Comments COLONOSCOPY Routine 12/24/2015 from Last 3 Months or Most Recently Relevant to Health Maintenance Results * COLONOSCOPY (12/24/2015) [facility] PROCEDURE/MINOR SURGICAL ORDERAB LES Final Result from Last 3 Months or Most Recently Relevant to Health Maintenance Insurance MEDICARE COMMERCIAL GENERIC Care Teams Under Trimmer Relationship Specialty Start Date End Date Jeff Bowles MD [address] [place] [address] PCP - General Family Medicine 01/19/19 Malachi Vaughn DO Gastroenterology 12/31/15
--- OUTSIDE RECORDS SUMMARY | 2025-02-11 09:59 | XMS_ITS | Clinical Summary ---
Author Organization [facility] Address [address] [place] [address] Care Team Providers Care Sales Representative Printing Supplies Name Role Phone Jeff Bowles MD Primary Care Provider [phone] Allergies Active Allergy Reactions Criticality Noted Date Comments Seasonal Runny Nose Low 01/25/2024 Medications traMADol 50 MG tabletIndicatio ns:Acute Pain < 7 Day Supply Take 1 tablet (50 mg total) by mouth every 4 (four) hours as needed for Pain. Indications: Acute Pain < 7 Day Supply 30 tablet 1 Active diclofenac EC 75 MG tablet Take 1 tablet (75 mg total) by mouth 2 (two) times daily. 60 tablet 1 Active omeprazole (PRILOSEC) 40 MG capsule Take 1 capsule (40 mg total) by mouth daily. Active pravastatin (PRAVACHOL) 20 MG tablet Take 1 tablet (20 mg total) by mouth nightly at bedtime. Active testosterone (ANDROGEL) 25 mg of testosterone/2. 5gm (1%) Gel gel Place 1 packet (25 mg of testosterone total) onto the skin daily. Active naloxone (NARCAN) 4 MG/0.1ML nasal spray 1 spray by Nasal route as needed for Opioid reversal. Active sildenafil (VIAGRA) 100 MG tablet Take 1 tablet (100 mg total) by mouth daily as needed for Erectile Dysfunction. Active losartan (COZAAR) 100 MG tablet Take 1 tablet (100 mg total) by mouth daily. Active amLODIPine (NORVASC) 10 MG tablet Take 1 tablet (10 mg total) by mouth daily. Active nebivolol (BYSTOLIC) 5 MG tablet Take 1 tablet (5 mg total) by mouth daily. Active HYDROcodone-camilla taminophen (NORCO) 10-325 MG tablet Take 1 tablet by mouth every 6 (six) hours as needed for Pain. Active ALPRAZolam (XANAX) 1 MG tablet Take 1 tablet (1 mg total) by mouth 3 (three) times daily as needed for Sleep. Active ferrous sulfate, 65 mg elemental, 325 (65 FE) MG tablet Take 1 tablet (325 mg total) by mouth daily with breakfast. 30 tablet Active Active Problems Problem Noted Date Diagnosed Date Altered mental status 01/25/2024 Encounters Date Type Department Care Team Description 11/26/2024 3:58 PM PIEROGI MAKER - 11/26/2024 11:59 PM [facility] Hospital Encounter [facility] [address] [place] [address] Jane Edmond DPM Discharge Disposition: Home or Self Care (Routine Discharge) 11/26/2024 Travel from Last 3 Months Social History Tobacco Use Types Packs/Day Years Used Date Smoking Tobacco: Never Assessed [facility] Utilities Answer Date Recorded In the past 12 months has [facility], gas, oil, or water [employer] threatened to shut off services in your home? No 01/25/2024 Humiliation, Afraid, Rape, and Kick questionnair e Answer Date Recorded Within the last year, have y ou been afraid of your partner or ex-partner? No 01/25/2024 Within the last year, have y ou been humiliated or emotionally abused in other ways by your partner or ex-partner? No Within the last year, have y ou been kicked, hit, slapped, or otherwise physically hurt by your partner or ex-partner? No 01/25/2024 Within the last year, have y ou been raped or forced to have any kind of sexual activity by your partner or ex-partner? No 01/25/2024 AUDIT-C Answer Date Recorded Q1: How often do you have a drink containing alc ohol? 2-3 times a week 01/25/2024 Q2: How many drinks containi ng alcohol do you have on a typical day when you are drinking? 1 or 2 01/25/2024 Q3: How often do you have si x or more drinks on one occasion? Less than monthly 01/25/2024 Overall Financial Resource Strain (CARDIA) Answe r Date Recorded How hard is it for you to pa y for the very basics like food, housing, medical care, and heating? Not hard at all 01/25/2024 Hunger Vital Sign Answer Date Recorded Within the past 12 months, y ou worried that your food would run out before you got the money to buy more. Never true 01/25/20 24 Within the past 12 months, t he food you bought just didn't last and you didn't have money to get more. Never true 01/25/2024 PRAPARE - Transportation Answer Date Re corded In the past 12 months, has l ack of transportation kept you from medical appointments or from getting medications? No 01/05 In the past 12 months, has l ack of transportation kept you from meetings, work, or from getting things needed for daily living? No 01/25/2024 Housing Stability Vital Sign Answer Buster e Recorded In the last 12 months, was t here a time when you were not able to pay the mortgage or rent on time? No 01/25/2024 In the last 12 months, how many places have you lived? 1 01/25/2024 In the last 12 months, was t here a time when you did not have a steady place to sleep or slept in a longterm (including now)? No 01/25/2024 Sex and Gender Information Value Date Recorded Sex Assigned at Not on file Legal Sex Male 8:01 PM CDT Gender Identity Not on file Sexual Orientation Not on file Last Filed Vital Signs Vital Sign Reading Time Taken Comments Blood Pressure 139/78 01/27/2024 8:33 AM CDT Pulse 74 01/27/2024 8:33 AM CDT Temperature 36.9 C (98.4 F) 01/27/2024 8:33 AM CDT Respiratory Rate 16 01/27/2024 8:33 AM CDT Oxygen Saturation 98% 01/27/2024 8:33 AM CDT Inhaled Oxygen Concentration - - Weight 95.3 kg (210 lb 1.6 oz) 01/25/2024 2:36 P M CDT Height 175.3 cm (5' 9.02 ) 01/25/2024 2:36 PM CD T Body Mass Index 31.01 01/25/2024 2:36 PM CDT Plan of Treatment Health Maintenance Due Date Last Done Comments Colorectal Cancer Screening Colonoscopy (10 Years) 1962 Annual Physical 1965 Pneumococcal Vaccine: Pediat rics (0 to 5 Years) and At-Risk Patients (6 to 64 Years) (1 of 2 - PCV) 1968 Hepatitis C 1980 DTaP, Tdap and Td Vaccines ( 1 - Tdap) 1981 Zoster Vaccines (1 of 2) 2012 RSV Immunization or 60+ Years (1 - Risk 60-74 years 1-dose series) 2022 COVID-19 Vaccine (2 - 2023-2 5 season) 2024 02/01/2021 Meningococcal B Vaccine Aged Out No l onger eligible based on patient's age to complete this topic Meningococcal Vaccine Aged Out No cheri ramona eligible based on patient's age to complete this topic RSV Immunizations Under 20 Months Aged Out No longer eligible based on patient's age to complete this topic Procedures Procedure Name Priority Date/Time Associated Diagnosis Comments XR FOOT RT 3V Routine 11/26/2024 4:14 PM PIEROGI MAKER Right foot pain from Last 3 Months Results * XR FOOT RT 3V (11/26/2024 4:14 PM PIEROGI MAKER) Anatomical Region Laterality Modality Foot Radiographic Sofy ging 11/27/2024 5:14 AM PIEROGI MAKER Impressions 11/27/2024 5:16 AM PIEROGI MAKER IMPRESSION: No radiographic evidence is seen to suggest acute fracture or malalignment of the bones of the right foot. If there is clinical concern for acute osteomyelitis, MRI would provide for more sensitive evaluation. Referred By: Interpreted By: Al Rossi DO, 11/27/2024 5:14 AM Narrative 11/27/2024 5:[address] [facility] [address] [place] [address] Examination: XR FOOT RT 3V Exam time: 11/26/2024 4:02 PM Clinical history: Right foot pain. Callus removed from lateral/plantar surface of the foot. Chronic pain. Comparison: None. Technique: Weightbearing AP, lateral, and oblique views of the right foot. 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 A normal anatomic variant type I accessory navicular is noted. No radiographic evidence is seen to suggest acute fracture or malalignment of the bones of the right foot. Small plantar and posterior calcaneal enthesophytes are noted. Procedure Note Al Rossi DO - 11/27/2024 [place] [address] Examination: XR FOOT RT 3V Exam time: 11/26/2024 4:02 PM Clinical history: Right foot pain. Callus removed from lateral/plantarsurface of the foot. Chronic pain. Comparison: None. Technique: Weightbearing AP, lateral, and oblique views of the rightfoot. Findings: There has been prior amputation of the toes at the level of themetatarsophalangeal joints. A normal anatomic variant type I accessorynavicular is noted. No radiographic evidence is seen to suggest acutefracture or malalignment of the bones of the right foot. Small plantarand posterior calcaneal enthesophytes are noted. IMPRESSION: No radiographic evidence is seen to suggest acute fracture or malalignmentof the bones of the right foot. If there is clinical concern for acuteosteomyelitis, MRI would provide for more sensitive evaluation. Referred By: Interpreted By: Al Rossi DO, 11/27/2024 5:14 AM Jane Edmond DPM GENERAL IMAGING Final Result from Last 3 Months Insurance MEDICARE MULTIPLAN Advance Directives * Full Code (Latest Code Status on File) Date Activated Date Inactivated Comments 01/25/2024 3:10 PM 01/27/2024 12:48 PM Care Teams Sales Representative Printing Supplies Relationship Specialty Start Date End Date Jeff Bowles MD [address] [place] [address] PCP - General FAMILY PRACTICE 02/15/21
== END 2025-02-11 09:16 | disposition home or self-care (01) ==
PROVIDERS: PCP Family Medicine; Visit Provider Internal Medicine Endocrinology, Diabetes & Metabolism
DX: E04.1 Nontoxic single thyroid nodule (principal)
CPT/HCPCS: 76536

== ENCOUNTER 2025-05-14 11:38 | Outpatient (CLI) | payer MEDICARE, SELFPAY ==
--- OUTSIDE RECORDS SUMMARY | 2025-05-14 11:29 | XMS_ITS | Clinical Summary ---
Author Organization [facility] Address [address], [facility] [address] [place] [address] Phone Care Team Providers Care Solder Cream Maker Name Role Phone Malachi Vaughn DO Unavailable [phone] Jeff Bowles MD Primary Care Provider Medications polyethylene glycol (MIRALAX) Powder Mix the [...] (Adult) (1 - 1-dose 75+ series) 2037 Hepatitis B Immunization Aged Out No longer [...] to Health Maintenance Results * COLONOSCOPY (12/24/2015) [facility] PROCEDURE/MINOR SURGICAL ORDERAB LES Final Result from Last 3 Months or Most Recently Relevant to Health Maintenance Insurance MEDICARE COMMERCIAL GENERIC Care Teams Solder Cream Maker Relationship Specialty Start Date End Date Jeff Bowles MD [address] [place] [address] PCP - General Family Medicine 01/19/19 Malachi Vaughn DO Gastroenterology 12/31/15
--- OUTSIDE RECORDS SUMMARY | 2025-05-14 11:29 | XMS_ITS | Clinical Summary ---
Author Organization [facility] Address [address] [place] [address] Care Team Providers Care Dairy Equipment Installer Name Role Phone Jeff Bowles MD Primary Care Provider [phone] Allergies Active Allergy Reactions Criticality Noted Date [...] by mouth daily with breakfast. 30 tablet 4 Active Active Problems Problem Noted Date Diagnosed Date Altered mental status 01/25/2024 Social History Tobacco Use Types Packs/Day Years Used Date Smoking Tobacco: Never Assessed [facility] Utilities Answer Date Recorded In the past 12 months has [facility] [employer], gas, oil, or water [employer] threatened to shut off services in your [...] place to sleep or slept in a fci (including now)? No 01/25/2024 Sex and Gender [...] P M CDT Height 175.3 cm (5' 9.02) 01/25/2024 2:36 PM CD T Body Mass Index 31.01 01/25/2024 2:36 PM CDT Plan of Treatment Health Maintenance Due Date Last Done Comments Colorectal Cancer Screening Colonoscopy (10 Years) 1962 Annual Physical 1965 Hepatitis C 1980 DTaP, Tdap and Td Vaccines ( 1 - Tdap) 1981 Pneumococcal Vaccine: 50+ Ye ars (1 of 1 - PCV) 2012 Zoster Vaccines (1 of 2) 2012 COVID-19 Vaccine (2 - 2023-2 5 season) 2024 02/01/2021 RSV Immunization or 60+ Years (1 - 1-dose 75+ series) 2037 Meningococcal B Vaccine Aged Out No l onger eligible based on patient's age to complete this topic Meningococcal Vaccine Aged Out No cheri ramona eligible based on patient's age to complete this topic RSV Immunizations Under 20 Months Aged Out No longer eligible based on patient's age to complete this topic Insurance MEDICARE MULTIPLAN Advance Directives * Full Code (Latest Code Status on File) Date Activated Date Inactivated Comments 01/25/2024 3:10 PM 01/27/2024 12:48 PM Care Teams Dairy Equipment Installer Relationship Specialty Start Date End Date Jeff Bowles MD [address] [address] PCP - General FAMILY PRACTICE 02/15/21
--- OUTSIDE RECORDS SUMMARY | 2025-05-14 11:40 | XMS_ITS | Encounter Summary ---
Author Organization [employer] Address [address] [place] [address] Care Team Providers Care Bridal Consultant Name Role Phone Unavailable Primary Care Provider Unavailabl e Encounter Details Date Type Department Care Team (Latest Contact Info) Description 02/11/2003 Outpatient Historical [facility] Redd Pozo MD [address] [place] [address] CERVICAL SPONDYLOSIS (Primary Dx) Social History Tobacco Use Types Packs/Day Years Used Date Smoking Tobacco: Never Assessed Sex and Gender Information Value Date Recorded Sex Assigned at Not on file Legal Sex Male 5:17 AM SUPERVISOR CIGAR MAKING MACHINE Gender Identity Not on file Sexual Orientation Not on file documented as of this encounter Plan of Treatment Not on file documented as of this encounter Visit Diagnoses Diagnosis Cervical spondylosis without myelopathy- Primary documented in this encounter
--- OUTSIDE RECORDS SUMMARY | 2025-05-14 11:40 | XMS_ITS | Clinical Summary ---
Author Organization [facility] Address [address] Chang: Epic [place]relude [place] [address] Care Team Providers Care Chair Lift Operator Name Role Phone Unavailable Primary Care Provider Unavailabl e Social History Tobacco Use Types Packs/Day Years Used Date Smoking Tobacco: Never Assessed Sex and Gender Information Value Date Recorded Sex Assigned at Not on file Legal Sex Male 5:17 AM SERVICE PLANNER Gender Identity Not on file Sexual Orientation Not on file Plan of Treatment Health Maintenance Due Date Last Done Comments DTAP/TDAP/TD VACCINES (1 - Tdap) 1981 COLORECTAL SCREENING 2007 Colorectal Cancer Screening 2007 FIT-DNA Q 3 years 2007 FIT/FOBT Q 1 year 2007 Flex Sig/CT Colonography Q 5 years 2007 ZOSTER VACCINE (1 of 2) 2012 INFLUENZA VACCINE (#1) 2025 RSV VACCINE (60+ or ) (1 - 1-dose 75+ series) 2037
[2025-05-17 14:08] LABS: Free Testosterone (Direct) 7.7 pg/mL (6.6-18.1)
[2025-05-20 00:07] LABS: Testosterone, Total, LC/MS 357 ng/dL (.)
== END 2025-05-14 11:39 | disposition home or self-care (01) ==
PROVIDERS: PCP Family Medicine; Visit Provider Internal Medicine Endocrinology, Diabetes & Metabolism
DX: E23.0 Hypopituitarism (principal)
CPT/HCPCS: 84402; 84403